=== PATIENT | female | born 1975 | race Caucasian/White ===

== ENCOUNTER 2020-03-05 18:28 | Emergency (ER) | payer OTHER ==
[~2020-03-05] VITALS: Ht 172.7 cm; Wt 65.8 kg
[2020-03-05] MEDS ORDERED: NAPROSYN500 MG PO (19:27)
[2020-03-05] MEDS ORDERED: NORCO 5-325 TA1 EAC1 PO (19:27)
[2020-03-05 20:06] VITALS: BP 101/65
== END 2020-03-05 20:07 | disposition home or self-care (01) ==
LOC: M.ERS 18:28
DX: S20.212A Contusion of left front wall of thorax, initial encounter (principal); Y04.2XXA Assault by strike against or bumped into by another person, initial encounter; Y93.89 Activity, other specified; Y92.89 Other specified places as the place of occurrence of the external cause; Y99.8 Other external cause status